=== PATIENT | female | born 1990 | race American Indian/Alaskan Native ===

== ENCOUNTER 2020-05-03 18:06 | Emergency (ER) | payer OTHER ==
[2020-05-03 18:12] VITALS: BP 123/81
[2020-05-03 18:59] LABS: Basophils % (Auto) 0.3 % (0.0-1.8); Eosinophils # (Auto) 0.1 K/mm3 (0.0-0.4); Eosinophils % (Auto) 1.4 % (0.0-4.3); Lymphocytes # (Auto) 3.2 K/mm3 (1.2-5.4); Lymphocytes % (Auto) 32.8 % (13.4-35.0); Mean Corpuscular HGB Conc 37 % (30-34); Mean Corpuscular Volume 82 fl (79-97); Monocytes # (Auto) 0.5 K/mm3 (0.0-0.8); Monocytes % (Auto) 5.4 % (0.0-7.3); Platelet Count 241 K/mm3 (140-440); Red Blood Count 4.38 M/mm3 (3.65-5.03); Red Cell Distribution Width 13.7 % (13.2-15.2)
[2020-05-03] MEDS ORDERED: ACETAMINOPHEN 325 MG TAB ONE (19:07)
[2020-05-03] MEDS ORDERED: ACETAMINOPHEN 325 MG TAB PO ONE (19:08)
[2020-05-03 19:22] LABS: Alanine Aminotransferase 32 units/L (7-56); Albumin 4.7 g/dL (3.9-5); Blood Urea Nitrogen 10 mg/dL (7-17); Calcium 9.8 mg/dL (8.4-10.2); Hemolysis Index 6
[2020-05-03 19:26] LABS: Hematocrit 35.9 % (30.3-42.9); Hemoglobin 13.3 gm/dl (10.1-14.3)
[2020-05-03 19:28] LABS: BUN/Creatinine Ratio 14
[2020-05-03 19:29] LABS: Bilirubin,Urine NEG (Negative); Blood,Urine NEG (Negative); Color,Urine Yellow (Yellow); Protein,Urine <15 mg/dL mg/dL (Negative); Urobilinogen,Urine < 2.0 mg/dL (<2.0); WBC,Urine < 1.0 /HPF (0.0-6.0)
--- NOTE | 2020-05-03 19:37 | Ultrasound Report ---
ULTRASOUND PELVIS, COMPLETE INDICATION: Pelvic pain COMPARISON: No relevant prior imaging study available. TECHNIQUE: Transabdominal imaging was performed. FINDINGS: Uterus: No significant abnormality. Endometrial echo complex measures 1 mm, attenuated. Right ovary: No significant abnormality. Flow is seen to the right ovary. Left ovary: No significant abnormality. Flow is seen to the left ovary. Additional findings: There is no free fluid in the pelvis. IMPRESSION: No acute findings. The endometrial echo complex is attenuated measuring 1 mm, correlate with cycle. Signer Name: Miguel Delgadillo MD Signed: 05/03/2020 7:32 PM Workstation Name: [id number]
--- NOTE | 2020-05-03 19:51 | Emergency Department Report ---
ED General Adult HPI - General Chief complaint: Abdominal Pain Stated complaint: ABD PAIN Time Seen by Provider: 05/03/20 18:32 Source: patient Mode of arrival: Ambulatory Limitations: No Limitations - History of Present Illness Initial comments: Patient is a 29-year-old female presents emergency room with complaints of lower abdominal pain that has been occurring since her last menstrual cycle on 04/15/2020. She states that she had a Nexplanon placed on January 2019. She states that she is still concerned that she may be even despite the Nexplanon. She states that she has an PROJECT CONTROL OFFICER. She has not yet seen the PROJECT CONTROL OFFICER since this has been occurring. She denies any vaginal bleeding, dysuria, abnormal vaginal discharge, vaginal irritation or burning, nausea, vomiting, diarrhea. Has a past medical history of HPV and ovarian cyst. No allergies to medications. - Related Data Previous Rx's Medication Instructions Recorded Last Taken Type Naproxen [EC-Naprosyn] 500 mg PO BID PRN #14 tablet. 05/03/20 Unknown Rx Allergies Allergy/AdvReac Type Severity Reaction Status Date / Time No Known Allergies Allergy Unverified 05/03/20 18:08 ED Review of Systems ROS: Stated complaint: ABD PAIN Other details as noted in HPI Comment: All other systems reviewed and negative ED Past Medical Hx - Past Medical History Previous Medical History?: No - Surgical History Additional Surgical History: CHEST PAIN - Social History Smoking Status: Current Every Day Smoker Substance Use Type: None - Medications Home Medications: Home Medications Medication Instructions Recorded Confirmed Last Taken Type Naproxen [EC-Naprosyn] 500 mg PO BID PRN #14 tablet. 05/03/20 Unknown Rx ED Physical Exam - General Limitations: No Limitations General appearance: alert, in no apparent distress - Head Head exam: Present: atraumatic, normocephalic - Eye Eye exam: Present: normal appearance - ENT ENT exam: Present: mucous membranes moist - Respiratory Respiratory exam: Present: normal lung sounds bilaterally. Absent: respiratory distress, wheezes, rales, rhonchi, stridor, chest wall tenderness, accessory muscle use, decreased breath sounds, prolonged expiratory - Cardiovascular Cardiovascular Exam: Present: regular rate, normal rhythm, normal heart sounds. Absent: systolic murmur, diastolic murmur, rubs, gallop - GI/Abdominal GI/Abdominal exam: Present: soft, normal bowel sounds. Absent: distended, tenderness, guarding, rebound, rigid - Neurological Exam Neurological exam: Present: alert, oriented X3 - Psychiatric Psychiatric exam: Present: normal affect, normal mood - Skin Skin exam: Present: warm, dry, intact ED Course Vital Signs 05/03/20 18:10 Temperature 98.7 F Pulse Rate 123 H Respiratory 18 Rate Blood Pressure 123/81 O2 Sat by Pulse 99 Oximetry ED Medical Decision Making - Lab Data Result diagrams: 05/03/20 18:46 05/03/20 18:46 Lab Results 05/03/20 05/03/20 05/03/20 Range/Units 18:45 18:46 18:46 WBC 9.9 (4.5-11.0) K/mm3 RBC 4.38 (3.65-5.03) M/mm3 Hgb 13.3 (10.1-14.3) gm/dl Hct 35.9 (30.3-42.9) % MCV 82 (79-97) fl MCH 30 (28-32) pg MCHC 37 H (30-34) % RDW 13.7 (13.2-15.2) % Plt Count 241 (140-440) K/mm3 Lymph % (Auto) 32.8 (13.4-35.0) % Charles % (Auto) 5.4 (0.0-7.3) % Eos % (Auto) 1.4 (0.0-4.3) % Baso % (Auto) 0.3 (0.0-1.8) % Lymph # (Auto) 3.2 (1.2-5.4) K/mm3 Charles # (Auto) 0.5 (0.0-0.8) K/mm3 Eos # (Auto) 0.1 (0.0-0.4) K/mm3 Baso # (Auto) 0.0 (0.0-0.1) K/mm3 Seg Neutrophils % 60.1 (40.0-70.0) % Seg Neutrophils # 5.9 (1.8-7.7) K/mm3 Sodium 139 (137-145) mmol/L Potassium 4.2 (3.6-5.0) mmol/L Chloride 105.7 (98-107) mmol/L Carbon Dioxide 21 L (22-30) mmol/L Anion Gap 17 mmol/L BUN 10 (7-17) mg/dL Creatinine 0.7 (0.6-1.2) mg/dL Estimated GFR > 60 ml/min BUN/Creatinine Ratio 14 % Glucose 80 (65-100) mg/dL Calcium 9.8 (8.4-10.2) mg/dL Total Bilirubin 0.30 (0.1-1.2) mg/dL AST 22 (5-40) units/L ALT 32 (7-56) units/L Alkaline Phosphatase 61 (35-129) units/L Total Protein 6.8 (6.3-8.2) g/dL Albumin 4.7 (3.9-5) g/dL Albumin/Globulin Ratio 2.2 % HCG, Quant (0-4) mIU/mL Urine Color Yellow (Yellow) Urine Turbidity Clear (Clear) Urine pH 6.0 (5.0-7.0) Ur Specific [place] 1.017 (1.003-1.030) Urine Protein <15 mg/dl (Negative) mg/dL Urine Glucose (UA) Neg (Negative) mg/dL Urine Ketones Neg (Negative) mg/dL Urine Blood Neg (Negative) Urine Nitrite Neg (Negative) Urine Bilirubin Neg (Negative) Urine Urobilinogen < 2.0 (<2.0) mg/dL Ur Leukocyte Esterase Neg (Negative) Urine WBC (Auto) < 1.0 (0.0-6.0) /HPF Urine RBC (Auto) 1.0 (0.0-6.0) /HPF U Epithel Cells (Auto) 3.0 (0-13.0) /HPF 05/03/20 Range/Units 18:46 WBC (4.5-11.0) K/mm3 RBC (3.65-5.03) M/mm3 Hgb (10.1-14.3) gm/dl Hct (30.3-42.9) % MCV (79-97) fl MCH (28-32) pg MCHC (30-34) % RDW (13.2-15.2) % Plt Count (140-440) K/mm3 Lymph % (Auto) (13.4-35.0) % Charles % (Auto) (0.0-7.3) % Eos % (Auto) (0.0-4.3) % Baso % (Auto) (0.0-1.8) % Lymph # (Auto) (1.2-5.4) K/mm3 Charles # (Auto) (0.0-0.8) K/mm3 Eos # (Auto) (0.0-0.4) K/mm3 Baso # (Auto) (0.0-0.1) K/mm3 Seg Neutrophils % (40.0-70.0) % Seg Neutrophils # (1.8-7.7) K/mm3 Sodium (137-145) mmol/L Potassium (3.6-5.0) mmol/L Chloride (98-107) mmol/L Carbon Dioxide (22-30) mmol/L Anion Gap mmol/L BUN (7-17) mg/dL Creatinine (0.6-1.2) mg/dL Estimated GFR ml/min BUN/Creatinine Ratio % Glucose (65-100) mg/dL Calcium (8.4-10.2) mg/dL Total Bilirubin (0.1-1.2) mg/dL AST (5-40) units/L ALT (7-56) units/L Alkaline Phosphatase (35-129) units/L Total Protein (6.3-8.2) g/dL Albumin (3.9-5) g/dL Albumin/Globulin Ratio % HCG, Quant < 2 (0-4) mIU/mL Urine Color (Yellow) Urine Turbidity (Clear) Urine pH (5.0-7.0) Ur Specific [place] (1.003-1.030) Urine Protein (Negative) mg/dL Urine Glucose (UA) (Negative) mg/dL Urine Ketones (Negative) mg/dL Urine Blood (Negative) Urine Nitrite (Negative) Urine Bilirubin (Negative) Urine Urobilinogen (<2.0) mg/dL Ur Leukocyte Esterase (Negative) Urine WBC (Auto) (0.0-6.0) /HPF Urine RBC (Auto) (0.0-6.0) /HPF U Epithel Cells (Auto) (0-13.0) /HPF - Radiology Data Radiology results: report reviewed Ordering Physician: NELSON DELANEY Date of Service: 05/03/20 Procedure(s): US pelvic complete Accession Number(s): [id number] cc: NELSON DELANEY ULTRASOUND PELVIS, COMPLETE INDICATION: Pelvic pain COMPARISON: No relevant prior imaging study available. TECHNIQUE: Transabdominal imaging was performed. FINDINGS: Uterus: No significant abnormality. Endometrial echo complex measures 1 mm, attenuated. Right ovary: No significant abnormality. Flow is seen to the right ovary. Left ovary: No significant abnormality. Flow is seen to the left ovary. Additional findings: There is no free fluid in the pelvis. IMPRESSION: No acute findings. The endometrial echo complex is attenuated measuring 1 mm, correlate with cycle. Signer Name: Miguel Delgadillo MD Signed: 05/03/2020 7:32 PM Workstation Name: [id number] Transcribed By: HOMAR Dictated By: Miguel Delgadillo MD Electronically Authenticated By: Miguel Delgadillo MD Signed Date/Time: 05/03/201931 DD/ 30 TD/TT: - Medical Decision Making Patient is a 29-year-old female presents emergency room with complaints of lower abdominal pain that has been occurring since her last menstrual cycle on 04/15/2020. She states that she had a Nexplanon placed on January 2019. She states that she is still concerned that she may be even despite the Nexplanon. She states that she has an PROJECT CONTROL OFFICER. She has not yet seen the PROJECT CONTROL OFFICER since this has been occurring. She denies any vaginal bleeding, dysuria, abnormal vaginal discharge, vaginal irritation or burning, nausea, vomiting, diarrhea. Has a past medical history of HPV and ovarian cyst. No allergies to medications. Initial vitals with tachycardia, I repeated vitals in exam room HR 97 bpm, O2 sat 99% on RA. Labs are normal. UA is within normal limits. OB US: No acute findings. The endometrial echo complex is attenuated measuring 1 mm, correlate with cycle. Discussed all results with patient answered questions. Discussed the importance of PROJECT CONTROL OFFICER follow-up with patient. Patient given prescription for naproxen. Advised patient please take medication as prescribed. increase your water intake. follow up with an PROJECT CONTROL OFFICER. return to the emergency room for any new or worsening symptoms. Critical care attestation.: If time is entered above; I have spent that time in minutes in the direct care of this critically ill patient, excluding procedure time. ED Disposition Clinical Impression: Lower abdominal pain Disposition: DC-01 TO HOME OR SELFCARE Is pt being admited?: No Does the pt Need Aspirin: No Condition: Stable Instructions: Abdominal Pain, Adult, Abdominal Pain (ED) Additional Instructions: please take medication as prescribed. increase your water intake. follow up with an PROJECT CONTROL OFFICER. return to the emergency room for any new or worsening symptoms. Prescriptions: Naproxen [EC-Naprosyn] 500 mg PO BID PRN #14 tablet.dr [place] Reason: pain Referrals: PRIMARY CARE, [Primary Care Provider] - 2-3 Days [facility] [Provider Group] - 2-3 Days [facility] [Provider Group] - 2-3 Days [facility] [Provider Group] - 2-3 Days Forms: Work/School Release Form(ED) Time of Disposition: 19:56 Print Language: MALAY
== END 2020-05-03 20:09 | disposition home or self-care (01) ==
LOC: ED 18:06
DX: R10.30 Lower abdominal pain, unspecified (principal); F17.200 Nicotine dependence, unspecified, uncomplicated; Z98.890 Other specified postprocedural states; Z79.899 Other long term (current) drug therapy
CPT/HCPCS: 36415; 76856; 80053; 81001; 84702; 85025